=== PATIENT | female | born 1995 | race Caucasian/White ===

== ENCOUNTER 2017-04-20 09:07 | Emergency (ER) | payer OTHER ==
--- NOTE | 2017-04-20 09:10 | UC ---
Eye Complaint HPI - HPI Summary HPI Summary: 21 year old female presents with complains of left red eye. - History of Current Complaint Stated Complaint: LEFT EYE COMPLAINT Time Seen by Provider: 04/20/17 09:09 Hx Obtained From: Patient Onset/Duration: Sudden Onset Timing: Constant Severity Initially: Moderate Severity Currently: Moderate Pain Scale Used: 0-10 Numeric - 5 Location of Injury: Conjunctiva Character: Sharp Aggravating Factor(s): Nothing Alleviating Factor(s): Nothing Associated Signs And Symptoms: Positive: Negative - Allergies/Home Medications Allergies/Adverse Reactions: Allergies Allergy/AdvReac Type Severity Reaction Status Date / Time No Known Allergies Allergy Verified 04/20/17 09:14 Home Medications: Home Medications Norethindrone Acet & Eth Estra [Junel 07/18] 1 tab PO DAILY 04/20/17 [History Confirmed 04/20/17] PMH/Surg Hx/FS Hx/Imm Hx Previously Healthy: Yes Review of Systems Constitutional: Negative Skin: Negative Eyes: Eye Redness, Photophobia ENT: Negative Respiratory: Negative Cardiovascular: Negative Gastrointestinal: Negative Genitourinary: Negative Motor: Negative Neurovascular: Negative Musculoskeletal: Negative Neurological: Negative Psychological: Negative All Other Systems Reviewed And Are Negative: Yes Physical Exam Triage Information Reviewed: Yes Vital Signs Reviewed: Yes Eyes: Positive: Conjunctiva Inflamed ENT Exam: Normal Dental Exam: Normal Neck exam: Normal Neck: Positive: 1 Respiratory Exam: Normal Cardiovascular Exam: Normal Abdominal Exam: Normal Musculoskeletal Exam: Normal Neurological Exam: Normal Psychological Exam: Normal Skin Exam: Normal Eye Complaint Course/Dx - Differential Dx/Diagnosis Provider Diagnoses: left eye conjunctivitis Discharge - Discharge Plan Condition: Stable Disposition: HOME Prescriptions: Naphazoline W/ Pheniramine [Opcon-A] 1 kacy BOTH EYES Q8H PRN #1 bottle PRN Reason: Itching Polymyx/Trimethoprim OPTH* [Polytrim OPHTH*] 1 drop LEFT EYE Q6H #1 btl Patient Education Materials: Conjunctivitis (ED) Forms: *School Release Referrals: No Primary Care Phys,NOPCP [Primary Care Provider] -
[2017-04-20 09:14] VITALS: BP 115/70
== END 2017-04-20 09:29 | disposition home or self-care (01) ==
LOC: UCCORT 09:07
DX: H10.32 Unspecified acute conjunctivitis, left eye (principal)
CPT/HCPCS: 99202; G0463

== ENCOUNTER 2018-03-25 11:07 | Emergency (ER) | payer OTHER, MEDICAID ==
[2018-03-25 11:58] VITALS: BP 108/72
--- NOTE | 2018-03-25 12:01 | UC ---
Throat Pain/Nasal Solo HPI - HPI Summary HPI Summary: 22 year old female with URI Sx . c/o body aches, fever, sore throat, R ear "popping", productive cough with green secretions, and sinus pressure that started yesterday. [ End ] - History of Current Complaint Chief Complaint: UCRespiratory Stated Complaint: CONGESTION,EARS,HEADACHE Time Seen by Provider: 03/25/18 12:01 Hx Obtained From: Patient Hx Last Menstrual Period: 03/05/18 Onset/Duration: Sudden Onset Severity: Moderate Pain Intensity: 6 Cough: Sputum Appears Associated Signs & Symptoms: Positive: Sinus Discomfort, Nasal Discharge - Allergies/Home Medications Allergies/Adverse Reactions: Allergies Allergy/AdvReac Type Severity Reaction Status Date / Time No Known Allergies Allergy Verified 03/25/18 11:52 Home Medications: Home Medications Ibuprofen TAB* [Advil TAB*] 400 mg PO Q6H PRN 03/25/18 [History Confirmed ] PMH/Surg Hx/FS Hx/Imm Hx Previously Healthy: Yes - Surgical History Surgical History: Yes Surgery Procedure, Year, and Place: left meiscus repair - Family History Known Family History: Positive: None - Social History Occupation: Student Alcohol Use: Occasionally Substance Use Type: None Smoking Status (MU): Never Smoked Tobacco - Immunization History Most Recent Influenza Vaccination: yes 2017 Review of Systems Constitutional: Fatigue ENT: Ear Ache, Nasal Discharge, Sinus Congestion, Sinus Pain/Tenderness Respiratory: Cough Is Patient Immunocompromised?: No All Other Systems Reviewed And Are Negative: Yes Physical Exam Triage Information Reviewed: Yes Appearance: Well-Appearing, No Pain Distress, Well-Nourished Vital Signs: Initial Vital Signs Temp 98.4 F 03/25/18 11:53 Pulse 95 03/25/18 11:53 Resp 15 03/25/18 11:53 BP 108/72 03/25/18 11:53 Pulse Ox 100 03/25/18 11:53 Eye Exam: Normal ENT Exam: Normal ENT: Positive: Nasal congestion, Nasal drainage, TM dull, Sinus tenderness Dental Exam: Normal Neck exam: Normal Neck: Positive: 1 Respiratory Exam: Normal Cardiovascular Exam: Normal Musculoskeletal Exam: Normal Neurological Exam: Normal Psychological Exam: Normal Skin Exam: Normal Throat Pain/Nasal Course/Dx - Course Course Of Treatment: VIRAL SINUSITIS: IT APPEARS THAT AT THIS TIME YOU HAVE A VIRAL SINUSITIS AND ARE ADVISED TO CONTINUE WITH DECONGESTANTS, FLONASE AND PLEASE ADD THE ALE MED SINUS RINSE / NETTI POT TO YOUR REGIMEN AND IF YOUR SYMPTOMS WORSEN OVER THE NEXT 3-4 DAYS THEN YOU MAY START THE ANTIBIOTICS. she is aware viral at this time -- aware fo Se if starts abx like c diff - Differential Dx/Diagnosis Differential Diagnosis/HQI/PQRI: Otitis Media, Sinusitis, URI Provider Diagnoses: sinusitis Discharge - Sign-Out/Discharge Documenting (check all that apply): Patient Departure All imaging exams completed and their final reports reviewed: No Studies - Discharge Plan Condition: Good Disposition: HOME Prescriptions: Amoxicillin/Clavulanate TAB* [Augmentin TAB 875*] 875 mg PO BID 10 Days #20 tab Patient Education Materials: Sinusitis (ED) Referrals: No Primary Care Phys,NOPCP [Primary Care Provider] - If Needed Additional Instructions: VIRAL SINUSITIS: IT APPEARS THAT AT THIS TIME YOU HAVE A VIRAL SINUSITIS AND ARE ADVISED TO CONTINUE WITH DECONGESTANTS, FLONASE AND PLEASE ADD THE ALE MED SINUS RINSE / NETTI POT TO YOUR REGIMEN AND IF YOUR SYMPTOMS WORSEN OVER THE NEXT 3-4 DAYS THEN YOU MAY START THE ANTIBIOTICS - Billing Disposition and Condition Condition: GOOD Disposition: Home
== END 2018-03-25 12:31 | disposition home or self-care (01) ==
LOC: UCCORT 11:07
DX: J32.9 Chronic sinusitis, unspecified (principal)
CPT/HCPCS: 99212; G0463

== ENCOUNTER 2018-06-08 15:53 | Emergency (ER) | payer OTHER, MEDICAID ==
[2018-06-08 16:46] VITALS: BP 129/61
--- NOTE | 2018-06-08 17:21 | UC ---
Respiratory Complaint HPI - HPI Summary HPI Summary: The patient is a 23-year-old female with a 3 to four-week history of nasal congestion postnasal drip and bilateral otalgia. Been febrile. Been extremely low energy. She denies any chest pain or shortness of breath. - History of Current Complaint Chief Complaint: UCGeneralIllness Stated Complaint: FEVER,ST,CONGESTION,COUGH,EAR PAIN Time Seen by Provider: 06/08/18 17:11 Hx Obtained From: Patient Hx Last Menstrual Period: 05/29/18 Onset/Duration: Gradual Onset, Lasting Hours, Lasting Weeks Severity Initially: Mild Severity Currently: Moderate Pain Intensity: 8 Pain Scale Used: 0-10 Numeric Character: Cough: Nonproductive Aggravating Factors: Nothing Alleviating Factors: Nothing Associated Signs And Symptoms: Positive: URI, Nasal Congestion, Sinus Discomfort - Allergies/Home Medications Allergies/Adverse Reactions: Allergies Allergy/AdvReac Type Severity Reaction Status Date / Time No Known Allergies Allergy Verified 06/08/18 16:42 Home Medications: Home Medications Dm/Pseudoephed/Acetaminophen [Day-Time Multi-Symptom Co] 1 cap PO Q6H PRN [History Confirmed 06/08/18] PMH/Surg Hx/FS Hx/Imm Hx Previously Healthy: Yes Respiratory History: Bronchitis - Surgical History Surgical History: Yes Surgery Procedure, Year, and Place: left meiscus repair - Family History Known Family History: Positive: None - Social History Alcohol Use: Occasionally Substance Use Type: None Smoking Status (MU): Never Smoked Tobacco - Immunization History Most Recent Influenza Vaccination: yes 2016 Review of Systems All Other Systems Reviewed And Are Negative: Yes Constitutional: Positive: Fever, Chills, Fatigue Skin: Positive: Negative Eyes: Positive: Negative ENT: Positive: Ear Ache, Nasal Discharge, Sinus Congestion, Sinus Pain/ Tenderness Respiratory: Positive: Negative Cardiovascular: Positive: Negative Gastrointestinal: Positive: Negative Genitourinary: Positive: Negative Motor: Positive: Negative Neurovascular: Positive: Negative Musculoskeletal: Positive: Negative Neurological: Positive: Negative Psychological: Positive: Negative Physical Exam Triage Information Reviewed: Yes Appearance: Well-Appearing, No Pain Distress, Well-Nourished Vital Signs: Initial Vital Signs Temp 99 F 06/08/18 16:40 Pulse 99 06/08/18 16:40 Resp 17 06/08/18 16:40 BP 129/61 06/08/18 16:40 Pulse Ox 99 06/08/18 16:40 Vital Signs Reviewed: Yes Eyes: Positive: Conjunctiva Clear ENT: Positive: Hearing grossly normal, Nasal congestion, Nasal drainage, TM bulging - r/l, TM red - L, Sinus tenderness Neck: Positive: Supple, Nontender, No Lymphadenopathy Respiratory: Positive: Lungs clear, Normal breath sounds, No respiratory distress, No accessory muscle use Cardiovascular: Positive: RRR, No Murmur Musculoskeletal: Positive: ROM Intact, No Edema Neurological: Positive: Alert Psychological Exam: Normal Skin Exam: Normal UC Diagnostic Evaluation - Laboratory O2 Sat by Pulse Oximetry: 99 - normal/not hypoxic Respiratory Course/Dx - Differential Dx/Diagnosis Provider Diagnosis: Acute sinusitis, Left acute otitis media, Right serous otitis media Discharge - Sign-Out/Discharge Documenting (check all that apply): Patient Departure All imaging exams completed and their final reports reviewed: No Studies - Discharge Plan Condition: Stable Disposition: HOME Prescriptions: Amoxicillin PO (*) [Amoxicillin 875 MG (*)] 875 mg PO BID #20 tab Fluticasone NASAL SPRAY 50MCG* [Flonase NASAL SPRAY 50MCG*] 2 spray BOTH NARES BID #1 btl Patient Education Materials: Sinusitis (ED) Referrals: No Primary Care Phys,NOPCP [Primary Care Provider] - Additional Instructions: recheck in 5-7 days if not better - Billing Disposition and Condition Condition: STABLE Disposition: Home
== END 2018-06-08 17:25 | disposition home or self-care (01) ==
LOC: UCCORT 15:53
DX: J01.90 Acute sinusitis, unspecified (principal); H66.92 Otitis media, unspecified, left ear; H65.91 Unspecified nonsuppurative otitis media, right ear
CPT/HCPCS: 99212; G0463

== ENCOUNTER 2018-06-10 07:32 | Emergency (ER) | payer OTHER, MEDICAID ==
[2018-06-10 07:44] VITALS: BP 124/80
--- NOTE | 2018-06-10 07:51 | UC ---
Eye Complaint HPI - HPI Summary HPI Summary: Patient presents to urgent care with 24 hours of progressive discharge from her right eye. Patient states it's yellow-green. It was slightly sticky and close this morning. Patient denies fevers or chills. Patient denies vision changes. Patient states mild itching. No tearing. Patient wears eyeglasses but no contact lenses. Patient was treated urgent care earlier this week and diagnosed with sinusitis. Patient was started on amoxicillin as well as Flonase. Patient states her sinus congestion is much better. Patient states intermittently she feels her left ear "popping "patient states she is not taking any [id number] medication for decongestant or cough. No fevers or chills. Patient did not use her Flonase today. Patient lives in an apartment that is not humidified. Patient is not allergic to any medications. Patient states she is not on control pills. - History of Current Complaint Chief Complaint: UCEye Stated Complaint: BI LAT EYE CONCERN Time Seen by Provider: 06/10/18 07:51 Hx Obtained From: Patient Hx Last Menstrual Period: 05/29/18 ?: No Onset/Duration: Gradual Onset Pain Intensity: 0 - Allergies/Home Medications Allergies/Adverse Reactions: Allergies Allergy/AdvReac Type Severity Reaction Status Date / Time No Known Allergies Allergy Verified 06/10/18 07:40 PMH/Surg Hx/FS Hx/Imm Hx Previously Healthy: Yes - Surgical History Surgical History: Yes Surgery Procedure, Year, and Place: left meiscus repair - Family History Known Family History: Positive: Non-Contributory - Social History Occupation: Student Lives: Dormitory/Roommates Alcohol Use: Occasionally Substance Use Type: None Smoking Status (MU): Never Smoked Tobacco - Immunization History Most Recent Influenza Vaccination: yes 2016 Review of Systems All Other Systems Reviewed And Are Negative: Yes Eyes: Positive: Drainage, Eye Redness. Negative: Blurred Vision, Diplopia, Photophobia ENT: Positive: Ear Ache, Sinus Congestion, Sinus Pain/Tenderness Physical Exam - Summary Physical Exam Summary: Vital Signs Reviewed: Yes A+Ox3, no distress Eyes: right eye injected, mild yellow discharge in medial canthus - DIVYA, EOM intact and full. No photophobia, crisp fundoscopic b/l ENT: Hearing grossly normal TM x 2 clear, turbinates boggy, + PND, mmoist, uvula midline, no exudate, no erythema Neck: Positive: Supple, no lymphadenopathy Respiratory: Positive: No respiratory distress, No accessory muscle use + CTA throughout no w/r, mild intermittent cough Cardiovascular: RRR nl s1, s2 no m/r CBT <2 sec abd soft + BS nt/nd no guarding, no distension Musculoskeletal Exam: MTZ x 4 without difficulty Strength Intact, ROM Intact Neurological: Positive: Alert, + sensation throughout Psychological: Positive: Normal Response To Family Skin: Positive: no rash, no ecchymosis Triage Information Reviewed: Yes Vital Signs: Initial Vital Signs Temp 97.1 F 06/10/18 07:40 Pulse 101 06/10/18 07:40 Resp 17 06/10/18 07:40 BP 124/80 06/10/18 07:40 Pulse Ox 98 06/10/18 07:40 Eye Complaint Course/Dx - Course Course Of Treatment: Patient presents with 24 hours of right eye irritation, erythema, and yellow discharge. Patient states was mild crusty this morning. Patient is currently on amoxicillin for sinusitis.. Patient states she feels better but intermittently has some left ear pressure. Patient also with a cough. Patient isn't taking any [id number] decongestant or cough suppressant. On exam patient with mild intermittent cough. Patient with well- appearing ears. Does have some sinus congestion postnasal drip. Patient's right eye is injected with discharge. No photophobia. Patient does not wear contact lenses. We'll start patient on Polytrim drops. Recommend good hand hygiene. Recommend patient humidify her room. [id number] decongestant cough medication. Return precautions. Patient comfortable in agreement with plan. - Differential Dx/Diagnosis Provider Diagnosis: Conjunctivitis, right eye Discharge - Sign-Out/Discharge Documenting (check all that apply): Patient Departure All imaging exams completed and their final reports reviewed: No Studies - Discharge Plan Condition: Stable Disposition: HOME Prescriptions: Polymyx/Trimethoprim OPTH* [Polytrim OPHTH*] 2 drop BOTH EYES Q6HR #1 btl Patient Education Materials: Rhinosinusitis (ED), Conjunctivitis (ED) Referrals: [facility] [Outside] No Primary Care Phys,NOPCP [Primary Care Provider] - Additional Instructions: - Stay well hydrated. Drink plenty of non-alcoholic, non-caffinated beverages. - Alternate ibuprofen (Advil, Motrin) 600mg and Tylenol every 3 hours for pain or fever. Take with food. Do NOT take for more than 4-5 days. - These infections are spread by secretions - do NOT share eating or drinking utensils - clean items you share with other people such as cell phones, computer mouse, TV remote, computer tablets,etc. Once you have been antibiotics for 2 days, change your toothbrush and your pillowcase. - get plenty of restful sleep - humidify the air in the room where you sleep - boil water, run a hot steam shower, vaporizer, cups of water by heat register - okay to take over the counter decongestant and cough medication (Zyrtec-D, Brynn-D, Sudafed, Claritin-D) - use nasal spray as prescribed - for your eyes - apply warm, wet wash cloth to help clean secretions. Use a clean wash cloth each time to avoid re-contaminating your eye - use eye drops as prescribed 2 drops affected eye, 4 times a day for 7 days - wash your pillowcase after using eye drops for 2 days - contact your doctor or return with questions or concerns - Billing Disposition and Condition Condition: STABLE Disposition: Home
== END 2018-06-10 08:12 | disposition home or self-care (01) ==
LOC: UCCORT 07:32
DX: H10.9 Unspecified conjunctivitis (principal)
CPT/HCPCS: 99212; G0463